=== PATIENT | male | born 1940 | race Caucasian/White ===

== ENCOUNTER → 2016-06-24 | Outpatient (CLI) | payer MEDICARE, OTHER ==
[~2016-06-24] MED LIST: ATOR40TA70 PO; HYDR-3816 PO; NEBI5TAB8 PO; PRD20T PO; VALA1000 PO
--- NOTE | 2016-06-24 13:24 | Diagnostic Imaging Report ---
PROCEDURE: MR imaging cervical spine without contrast. TECHNIQUE: Multiplanar, multisequence MR imaging of the cervical spine was performed without contrast. INDICATION: Neck pain and stiffness. FINDINGS: There is exaggerated lordotic curvature in the cervical spine. The alignment evaluation at the posterior spinal line demonstrates minimal anterior translation of C5 over C6, with satisfactory alignment otherwise. No widening of the predental space. The vertebral body heights are preserved. The discs are desiccated at all levels with no significant disc height loss at any level. The bone marrow signal demonstrates no significant abnormality. Prominent hypertrophy around the dens is seen. The foramen magnum and upper cervical canal however are widely patent. The spinal cord has normal caliber, contour, and signal. C2-C3: No disc herniation, no spinal canal or foraminal stenosis. C3-C4: There is a mild disc spur complex with no spinal canal stenosis. There is foraminal stenosis of moderate degree on the left and no significant stenosis on the right at this level related to asymmetric facet joint hypertrophy. C4-C5: There is a disc spur complex and posterior ligamentous hypertrophy resulting in moderate spinal canal stenosis. It reduces the AP dimension of the spinal canal to 7.9 mm. There is minimal impression upon the spinal cord with flattening of its anterior aspect. No cord signal abnormality. The foramina have overlying artifacts with likely underlying at least moderate stenosis bilaterally. C5-C6: There is a disc spur complex with no significant spinal canal stenosis. The foramina demonstrate bilateral mild stenosis. C6-C7: There is a mild disc spur complex seen. There is bilateral mild foraminal stenosis. C7-T1: No significant disc or spinal canal stenosis is seen. There is however prominent left facet joint arthropathy resulting in moderate foraminal stenosis on the left side at the lateral aspect. The sagittal images demonstrate portion of the upper thoracic spine levels demonstrating mild compression fracture of T3 vertebral body that has normal marrow signal compatible with chronicity. At the T3-T4 level, there is a prominent disc herniation seen centrally which appears to result in the mild spinal canal stenosis reducing the central canal AP dimension to 8.7 mm and has mild impression upon the spinal cord. IMPRESSION: 1. Degenerative changes in the cervical spine with moderate spinal canal stenosis at the C4-C5 level associated with minimal impression upon the spinal cord. No cord signal abnormality. There are multilevel neuroforaminal stenoses in the cervical spine as described. 2. There is an old compression fracture of T3 vertebral body. At the T3-T4 level, there is a central disc protrusion associated with mild spinal canal stenosis and impression upon the anterior margin of the spinal cord at that level. Dictated by: Dictated on workstation # [id number]
== END ==
LOC: RAD 11:33
PROVIDERS: ATTEND Internal Medicine
DX: M48.02 Spinal stenosis, cervical region (principal)
CPT/HCPCS: 72141

== ENCOUNTER 2021-08-19 05:27 | Outpatient (RCR) | payer MEDICARE, OTHER ==
[~2021-08-19] VITALS: Ht 175.3 cm; Wt 79.5 kg
[~2021-08-19 05:27] MED LIST changes: +AMLO2.5T4 PO; +ASPI-1238 PO; +CARV25TA PO; +HYDR-34 PO; -HYDR-3816 PO; +OLME40TA12 PO; +PREG75CA75 PO; -VALA1000 PO; +VALA10007 PO
== END 2021-08-19 08:17 | disposition home or self-care (01) ==
LOC: PREOP 05:27
PROVIDERS: ATTEND Internal Medicine
DX: Z01.812 Encounter for preprocedural laboratory examination (principal); R63.4 Abnormal weight loss; R10.13 Epigastric pain; Z86.010 Personal history of colon polyps; Z20.822 Contact with and (suspected) exposure to COVID-19
CPT/HCPCS: 87636

== ENCOUNTER 2021-08-21 09:28 | Day surgery (SDC) | payer MEDICARE, OTHER ==
--- NOTE | 2021-08-18 07:12 | HISTORY AND PHYSICAL ---
DATE OF SERVICE: PANENDOSCOPY HISTORY AND PHYSICAL DATE OF ADMISSION: ____ HISTORY: The patient is a 80-year-old white male referred by Dr. Kimball for consideration for panendoscopy. He reports he was doing relatively well up until mid May when he ran out of [employer], decided to go off of it cold turkey. He had been on the medicine for a number of years, treating postherpetic neuralgia with history of right cervical nerve root involvement where his pain was. He had been taking 600 mg a day. He reports after 3 or 4 days he felt horrible, it persisted for a week or two until he went back on lower dose of Lyrica. Within a month of this episode, he then developed epigastric pain. Food does temporarily make it better. He denies any nocturnal symptoms, but it lasts for minutes to hours. It is burning in quality. He has no history of peptic ulcer disease. He does take a baby aspirin daily for primary prevention with a history of hyperlipidemia and hypertension that has been increasingly difficult to control, more labile over the past several months. He states that food does not make his symptoms worse, but usually temporarily makes things feel better. He denies melena or bright red blood per rectum. He reports past history of colon polyps. He has been getting colonoscopies every 5 years and he reports this year will be his fifth year. PAST MEDICAL HISTORY: Significant for hypertension and hyperlipidemia with no known history of vascular disease as well as the postherpetic neuralgia. PAST SURGICAL HISTORY: He had radical prostatectomy for prostate cancer in 2005 without evidence for recurrence and he has had a skin cancer excision, not reportedly melanoma. FAMILY HISTORY: He is not aware of any family history for GI tract malignancy including colon cancer, gastric cancer or pancreatic cancer. SOCIAL HISTORY: He has no past smoking history, has not consumed alcohol for several years with no history of heavy drinking. He is retired. REVIEW OF SYSTEMS: CONSTITUTIONAL: Pertinent for a 10-pound weight loss over the past 2 months, unusual for him as he has been stable for many years prior to this per his report. Denies night sweats, chills or fever. GASTROINTESTINAL: As noted in the HPI. PULMONARY: Denies cough, wheezing, or shortness of breath. CARDIOVASCULAR: Denies dyspnea on exertion, orthopnea, PND, pedal edema, or syncope. PHYSICAL EXAMINATION: GENERAL: Reveals a pleasant, anxious white male, did not appear to be in acute distress otherwise. VITAL SIGNS: Blood pressure 140/80, weight 175 pounds. HEENT: Unremarkable. Sclerae nonicteric. CHEST: Clear to auscultation. CARDIOVASCULAR: Reveals a regular rate and rhythm, 1 to 2/6 systolic ejection murmur heard best at second intercostal space without evidence for pulsus, parvus or tardus. No diastolic murmurs noted. ABDOMEN: Soft, supple. There is epigastric pain with negative Carnett sign. No rebound or guarding noted. No mass or organomegaly appreciated. Bowel sounds positive and unremarkable. EXTREMITIES: Reveal no cyanosis, clubbing or edema. ASSESSMENT: For evaluation of weight loss and epigastric pain, the patient is being set up for EGD evaluation. He is also being set up for diagnostic colonoscopy due to past history of colon polyps. Prep instructions with the Suprep kit were given and questions answered. The patient was adamant about having this done as soon as possible. Did not want to wait until the following Tuesday when it could be done at [facility], so per his request it is being done at [facility]. He was advised to abstain from aspirin and continue his other medications. I thank you for the referral of this pleasant gentleman. Job ID: [id number] DocumentID: [id number] Dictated Date: 08/17/2021 14:02:20 Mechanical Insulator Date: 08/17/2021 14:47:38 Dictated By: QUE SANTOS MD
[~2021-08-21] VITALS: Ht 175.3 cm; Wt 78.5 kg
--- NOTE | 2021-08-21 09:33 | Pre-Op Note & Conscious Sedat ---
Pre-Operative Progress Note H&P Reviewed The H&P was reviewed, patient examined and no changes noted. Date H&P Reviewed: Aug 21, 2021 Time H&P Reviewed: 09:33 Conscious Sedation Pre-Proced ASA Score 2 For ASA 3 and 4: Consider anesthesia and medical clearance. Also, for patients with a history of failed moderate sedation consider anesthesia. Airway Lungs Heart ASA score ASA 1: a normal healthy patient ASA 2: a patient with a mild systemic disease (mid diabetes, controlled hypertension, obesity ASA 3: a patient with a severe systemic disease that limits activity (angina, COPD, prior Myocardial infarction) ASA 4: a patient with an incapacitating disease that is a constant threat to life (CHF, renal failure) ASA 5: a moribund patient not expected to survive 24 hrs. (ruptured aneurysm) ASA 6: a declared brain- patient whose organs are being harvested. For emergent operations, add the letter E after the classification Mallampati Classification Grade 2 Sedation Plan Analgesia, Amnesia, Plan communicated to team members, Discussed options with patient/fam, Discussed risks with patient/fam The patient is an appropriate candidate to undergo the planned procedure, sedation, and anesthesia. The patient immediately re-assessed prior to indication. QUE SANTOS MD Aug 21, 2021 09:33
--- NOTE | 2021-08-21 09:34 | Pre-Op Note & Conscious Sedat ---
Pre-Operative Progress Note H&P Reviewed The H&P was reviewed, patient examined and no changes noted. Date H&P Reviewed: Aug 21, 2021 Time H&P Reviewed: 09:34 Conscious Sedation Pre-Proced Time 09:33 ASA Score 2 For ASA 3 and 4: Consider anesthesia and medical clearance. Also, for patients with a history of failed moderate sedation consider anesthesia. Airway Lungs Heart ASA score ASA 1: a normal healthy patient ASA 2: a patient with a mild systemic disease (mid diabetes, controlled hypertension, obesity ASA 3: a patient with a severe systemic disease that limits activity (angina, COPD, prior Myocardial infarction) ASA 4: a patient with an incapacitating disease that is a constant threat to life (CHF, renal failure) ASA 5: a moribund patient not expected to survive 24 hrs. (ruptured aneurysm) ASA 6: a declared brain- patient whose organs are being harvested. For emergent operations, add the letter E after the classification Mallampati Classification Grade 2 Sedation Plan Analgesia, Amnesia, Plan communicated to team members, Discussed options with patient/fam, Discussed risks with patient/fam The patient is an appropriate candidate to undergo the planned procedure, sedation, and anesthesia. The patient immediately re-assessed prior to indication. QUE SANTOS MD Aug 21, 2021 09:34
[2021-08-21] MEDS ORDERED: LACTATED RINGERS 1,000 ML IV ONE (09:37)
[2021-08-21] MEDS ORDERED: LACTATED RINGERS 1,000 ML IV STA (09:37)
[2021-08-21 09:45] VITALS: BP 151/75
[2021-08-21] MEDS ORDERED: LIDOCAINE JELLY 2% 6 ML SYRINGE MM PRN (09:45)
[2021-08-21] MEDS ORDERED: HURRICAINE EXT TUBE (BENZOCAINE) XX PRN (09:45)
[2021-08-21] MEDS ORDERED: PROPOFOL INJECTION 50 ML IV ONE (10:32)
[2021-08-21 11:10] VITALS: BP 108/57
[2021-08-21 11:14] VITALS: BP 145/67
[2021-08-21 11:16] VITALS: BP 145/67
--- NOTE | 2021-08-21 11:19 | Anesthesia-General Post-Op ---
MAC Patient Condition Mental Status/LOC: Same as Preop Cardiovascular: Satisfactory Nausea/Vomiting: Absent Respiratory: Satisfactory Pain: Controlled Complications: Absent Post Op Complications Complications None Follow Up Care/Instructions Patient Instructions None needed. Anesthesiology Discharge Order Discharge Order Patient is doing well, no complaints, stable vital signs, no apparent adverse anesthesia problems. ABE CHING DO Aug 21, 2021 11:19
[2021-08-21 11:33] VITALS: BP 161/78
--- NOTE | 2021-08-21 16:55 | OPERATIVE REPORT ---
DATE OF SERVICE: PANENDOSCOPY SUMMARY INDICATION FOR THE PROCEDURE: Epigastric pain with weight loss and history of colon polyps. PROCEDURE: The patient was placed in the left lateral decubitus position. The endoscope was inserted into the oral cavity and under direct visualization, the esophagus was intubated. The endoscope was passed down the esophagus through the stomach and the second portion of the duodenum. Careful inspection was made as the endoscope was withdrawn. FINDINGS: The posterior pharynx, epiglottis, arytenoid aperture and true and false vocal folds were unremarkable on gross inspection. Proximal and mid esophagus were unremarkable. There are some questionable endoscopic findings of candidiasis. Brushing was obtained and submitted for a fungal culture. There were several projections of columnar mucosa extending not more than 2 cm from the GE junction, suspicious for possible short segment Fishman's. Biopsies were obtained. There was no evidence for erosive esophagitis. The Z line was distinct without evidence for erythema. A small 1 to 2 cm hiatal hernia was present. The cardia, fundus, antrum, pylorus, pyloric channel, duodenal bulb, and second portion of duodenum were unremarkable to visual inspection. ASSESSMENT: Questionable short segment Fishman's is present. There was no evidence for erosive esophagitis. The patient does have a small 1 to 2 cm hiatal hernia, again without evidence for erosive esophagitis. There were questionable distal esophageal mucosal findings of candidiasis. A brushing was obtained for fungal culture. If positive I will initiate treatment with Diflucan We then proceeded with colonoscopy. DESCRIPTION OF PROCEDURE: The patient was placed in the left lateral decubitus position. Prior to undergoing colonoscopy, a digital rectal evaluation was performed. Anal sphincter tone was normal and the perianal reflexes intact. There was no palpable evidence for prostate and no nodularity noted. No abnormalities were noted on digital inspection of the anal canal or distal rectal vault otherwise. The colonoscope was then inserted into the rectum and under direct visualization advanced to the cecum. The cecum was identified by identification of the ileocecal valve and cecal strap. Photographic documentation was obtained. Careful inspection was made as the colonoscope was withdrawn. The quality of the prep was good. FINDINGS: There was no evidence for internal or external hemorrhoids. The rectum, sigmoid colon, descending colon, splenic flexure, transverse colon, hepatic flexure, ascending colon, and cecum were unremarkable with no evidence for neoplasia or diverticular disease. ASSESSMENT AND PLAN: Normal colonoscopy to the cecum. I would advocate consideration for repeat surveillance colonoscopy in five years if the patient's health remains good. I thank you for the referral of this pleasant gentleman. Job ID: [id number] DocumentID: [id number] Dictated Date: 08/21/2021 11:18:41 Vice President Of News Date: 08/21/2021 16:54:55 Dictated By: QUE SANTOS MD MTDD
== END 2021-08-21 11:42 | disposition home or self-care (01) ==
LOC: ENDO 09:28
PROVIDERS: ATTEND Internal Medicine
DX: Z12.11 Encounter for screening for malignant neoplasm of colon (principal); K31.A15 Gastric intestinal metaplasia without dysplasia, involving multiple sites; R10.13 Epigastric pain; R63.4 Abnormal weight loss; Z86.010 Personal history of colon polyps; Z68.25 Body mass index [BMI] 25.0-25.9, adult
CPT/HCPCS: 43239; G0105

== ENCOUNTER 2022-07-28 06:17 | Outpatient (CLI) | payer MEDICARE, OTHER ==
[~2022-07-28] VITALS: Ht 175.3 cm; Wt 79.4 kg
[~2022-07-28 06:17] MED LIST changes: -OLME40TA12 PO; +OLME40TA70 PO
[2022-07-28] MEDS ORDERED: UBID100C17 PO (09:07)
[2022-07-28] MEDS ORDERED: ERGO400C PO (09:07)
[2022-07-28] MEDS ORDERED: MULT-1061 PO (09:07)
== END 2022-07-28 09:10 ==
LOC: PREOP 06:17
PROVIDERS: ATTEND Internal Medicine
DX: Z01.818 Encounter for other preprocedural examination (principal)

== ENCOUNTER 2022-09-03 09:13 | Day surgery (SDC) | payer MEDICARE, OTHER ==
--- NOTE | 2022-07-26 16:32 | HISTORY AND PHYSICAL ---
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 The patient reports he has been doing more throat clearing, which has been a symptom suggesting worsening reflux in the past and he was due for yearly surveillance. This was a video Telehealth appointment as the patient lives out of town and it is difficult for him to get down to [place]. The patient denies dysphagia. He has noted no bright red blood per rectum or melena. Reports his weight as far as he knows has been stable. He has had no surgeries in the past year. He reports no significant change in health, although he has been having some morning blood pressure elevation and has been asymptomatic in the 160-170 range, the rest of the day blood pressure has been good. Recently, for this reason, they have increased his carvedilol to 50 mg in the evening, still taking 25 mg in the morning. He thinks the blood pressure is aggravated by attempting to get off of Lyrica that he takes for postherpetic neuralgia. He had significant flare of neuropathic pains, so he is back on Lyrica and blood pressures have been trending lower in the morning and normal throughout the rest of the day, below 140 systolic. PAST MEDICAL HISTORY: There have been no changes with a history of prostate cancer for which he underwent prostatectomy in 2005. No evidence for recurrence and he has postherpetic neuralgia as well as hypertension, hyperlipidemia, still with no known history for vascular disease. He is not aware of any family history of GI tract malignancy including gastric cancer, esophageal cancer or colon cancer. He had accomplished colonoscopy one year ago, it did not reveal any evidence for neoplasia. The patient appeared well, in no acute distress on evaluation today remotely. The patient is being set up for surveillance EGD due to history of short segment Fishman's and symptoms compatible with continued reflux. We did discuss elevating the head of his bed in addition to the importance of not eating or drinking 3-4 hours before bedtime on top of increasing pantoprazole to 40 mg b.i.d. We will be performing physical examination at the time of his office visit. The patient is instructed to hold aspirin after his dose on 07/30/2022 with an appointment on the for EGD evaluation. He is to remain n.p.o. after midnight. I thank you for the referral of this pleasant gentleman. Job ID: [id number] DocumentID: [id number] Dictated Date: 07/22/2022 10:53:58 Sheriff Date: 07/22/2022 11:32:00 Dictated By: QUE SANTOS MD MTDD
[~2022-09-03] VITALS: Ht 175 cm; Wt 79.4 kg
[~2022-09-03 09:13] MED LIST changes: +ERGO400C PO; +MULT-1061 PO; +UBID100C17 PO
[2022-09-03] MEDS ORDERED: LACTATED RINGERS 1,000 ML IV STA (09:24)
[2022-09-03] MEDS ORDERED: HURRICAINE EXT TUBE (BENZOCAINE) XX PRN (09:30)
--- NOTE | 2022-09-03 09:44 | Pre-Op Note & Conscious Sedat ---
Pre-Operative Progress Note Date H&P Reviewed: Sep 03, 2022 Time H&P Reviewed: 09:43 History & Physical: H&P Reviewed, Patient Examed, No changes noted Pre-Op Diagnosis: reza's esophagus surviallance Moderate Sedation PreProcedure ASA Score 2 Airway Lungs Heart ASA score ASA 1: a normal healthy patient ASA 2: a patient with a mild systemic disease (mid diabetes, controlled hypertension, obesity ASA 3: a patient with a severe systemic disease that limits activity (angina, COPD, prior Myocardial infarction) ASA 4: a patient with an incapacitating disease that is a constant threat to life (CHF, renal failure) ASA 5: a moribund patient not expected to survive 24 hrs. (ruptured aneurysm) ASA 6: a declared brain- patient whose organs are being harvested. For emergent operations, add the letter E after the classification Mallampati Classification Grade 1 Sedation Plan Analgesia, Amnesia, Plan communicated to team members, Discussed options with patient/fam, Discussed risks with patient/fam The patient is an appropriate candidate to undergo the planned procedure, sedation, and anesthesia. The patient immediately re-assessed prior to indication. QUE SANTOS MD Sep 03, 2022 09:44
[2022-09-03 09:45] VITALS: BP 174/86
[2022-09-03] MEDS ORDERED: proPOfol 200 MG/20 ML (DIPRIVAN) VIAL IV ONE (11:01)
[2022-09-03 11:20] VITALS: BP 141/79
--- NOTE | 2022-09-03 11:22 | Anesthesia-General Post-Op ---
MAC Patient Condition Mental Status/LOC: Same as Preop Cardiovascular: Satisfactory Nausea/Vomiting: Absent Respiratory: Satisfactory Pain: Controlled Complications: Absent Post Op Complications Complications None Follow Up Care/Instructions Patient Instructions None needed. Anesthesiology Discharge Order Discharge Order Patient is doing well, no complaints, stable vital signs, no apparent adverse anesthesia problems. No complications reported per nursing. HAILEY ALEX CRNA Sep 03, 2022 11:22
[2022-09-03 11:25] VITALS: BP 154/87
[2022-09-03 11:30] VITALS: BP 149/83
--- NOTE | 2022-09-03 11:44 | Progress Note-Post Operative ---
Post-Procedure Note Physician (s)/Co Founder And Ceo (s) Physician QUE SANTOS MD Pre-Procedure Diagnosis Pre-Procedure Diagnosis: reza's esophagus surviallance Post-Procedure Diagnosis Post-operative diagnosis: EGD was performed for Fishman's surveillance. The patient was placed in the left lateral decubitus position. The endoscope was inserted into the oral cavity and under direct visualization and the esophagus is intubated. The endoscope was passed down the esophagus to stomach and second portion of the duodenum. A careful inspection was made as the endoscope was withdrawn. Findings: The posterior pharynx epiglottis arytenoid aperture and true and false vocal folds were unremarkable to visual inspection. The proximal and midesophagus were unremarkable. Several fingerlike projections of columnar appearing mucosa extended no more than 2 cm from the distal esophagus with a secondarily irregular Z-line. There was no evidence for erosive esophagitis nodularity or other abnormality. Four-quadrant biopsies were submitted for Fishman's surveillance. Approximate 2 cm hiatal hernia was noted with an otherwise normal cardia fundus and antrum of the stomach. The pylorus the pyloric channel duodenal bulb and second portion of the interim were unremarkable as well. A/P 1. Findings compatible with short segment Fishman's are again noted without evidence for erosive esophagitis. As long as there is no evidence for high-grade dysplasia the patient should be low risk for future esophageal cancer and considering his age I would not recommend future surveillance EGD. He has been doing better in the throat clearing department which may be reflux related on twice daily pantoprazole he was advised to continue that for now. I thank you for the furl this pleasant gentleman sincerely, Que Santos MD. CC: Dr. Chapito Kimball DO. QUE SANTOS MD Sep 03, 2022 11:44
[2022-09-03 11:45] VITALS: BP 149/83
[2022-09-03 12:00] VITALS: BP 149/83
== END 2022-09-03 12:00 | disposition home or self-care (01) ==
LOC: ENDO 09:13
PROVIDERS: ATTEND Internal Medicine
DX: K22.70 Barrett's esophagus without dysplasia (principal); K44.9 Diaphragmatic hernia without obstruction or gangrene; I10 Essential (primary) hypertension; B02.29 Other postherpetic nervous system involvement; Z85.46 Personal history of malignant neoplasm of prostate; Z79.899 Other long term (current) drug therapy; Z79.82 Long term (current) use of aspirin
CPT/HCPCS: 88305